=== PATIENT | female | born 1985 | race Hispanic/Latino ===

== ENCOUNTER 2018-09-25 02:16 | Inpatient (IN) | payer OTHER ==
[2018-09-25 03:39] VITALS: BMI 25.8
[2018-09-25] MEDS ORDERED: Lactated Ringer's 1,000 ML IV SCH (03:45)
--- NOTE | 2018-09-25 03:47 | OBHP ---
Datetime: 09/25/2018 03:41 IP Adm Impression: Term, intrauterine ; Ruptured Membranes IP Admit Plan: Admit to unit; Initiate labor induction protocol Admit Comment, IP Provider: Patient is a @ 37.6 wks, suspected rupture of membranes, slightly b lood tinged, no ctxns,+FM. Patient reports A Negative blood type, received Rhogam in the @ 28 wks, otherwise no antepartum issues, no medical problems, no surgeries, no allergies, no medicatio ns except vitamins. On exam, grossly ruptured VE=1/50/-3, grossly ruptured [id number] mod rosalio, +accels, no decels TOCO= infrequent A/P 1. Patient admited for ROM, IVF, CBC/type and screen 2. Will start Cytotec for augmentation 3. Patient does not want anything for pain at this time Pelvic Type - PN: Adequate Extremities - PN: Normal Abdomen - PN: Normal Back - PN: Normal Breast - PN: Normal Lungs - PN: Normal Heart - PN: Normal Thyroid - PN: Normal Neurologic - PN: Normal HEENT - PN: Normal General - PN: Normal FHR - Baseline A Provider: 125 Amniotic Fluid Color, Provider: Bloody Membranes, Provider: Ruptured Contraction Comments Provider: infrequent EGA AdmitDate IP: 37.6 Vital Signs Provider: Reviewed; Within Normal Limits IP Chief Complaint: Suspected ruptured membranes NICHD Variability Prov Fetus A: Moderate 6-25bpm NICHD Accel Fetus A IP Provider: 15X15 NICHD Decel Fetus A IP Provider: None Dilatation, Provider: 1 Effacement, Provider: 50 Station, Provider: -3 Genitourinary Exam: Normal DTRs - PN: Normal
[2018-09-25 04:26] LABS: BASO % 0.3 % (0.0-2.0); EOS # 0.1 K/uL (0.0-0.7); EOS % 0.6 % (0.0-4.0); HEMOGLOBIN 11.5 g/dL (12.0-16.0); LYMPH # 1.6 K/uL (1.0-4.3); LYMPH % 16.1 % (20.0-40.0); MEAN CELL VOLUME 87.6 fl (81.0-99.0); MEAN CORPUSCULAR HEMOGLOBIN 28.7 pg (27.0-31.0); MEAN CORPUSCULAR HGB CONC 32.8 g/dL (33.0-37.0); MEAN PLATELET VOLUME 10.2 fl (7.2-11.7); MONO # 0.7 K/uL (0.0-0.8); MONO % 7.2 % (0.0-10.0); NEUT # 7.3 K/uL (1.8-7.0); NEUT % 75.8 % (50.0-75.0); RBC 4.01 Mil/uL (3.80-5.20); RED CELL DISTRIBUTION WIDTH 13.7 % (11.5-14.5); WHITE BLOOD COUNT 9.6 K/uL (4.8-10.8)
[2018-09-25 04:33] VITALS: RESP 18
--- NOTE | 2018-09-25 08:05 | OBADHP ---
Datetime: 09/25/2018 03:41 Admit Comment, IP Provider: Patient is a @ 37.6 wks, suspected rupture of membranes, slightly b lood tinged, no ctxns,+FM. Patient reports A Negative blood type, received Rhogam in the @ 28 wks, otherwise no antepartum issues, no medical problems, no surgeries, no allergies, no medicatio ns except vitamins. On exam, grossly ruptured VE=1/50/-3, grossly ruptured [id number] mod rosalio, +accels, no decels TOCO= infrequent A/P 1. Patient admited for ROM, IVF, CBC/type and screen 2. Will start Cytotec for augmentation 3. Patient does not want anything for pain at this time 4. Re-evaluate as needed Pelvic Type - PN: Adequate Extremities - PN: Normal Abdomen - PN: Normal Back - PN: Normal Breast - PN: Normal Lungs - PN: Normal Heart - PN: Normal Thyroid - PN: Normal Neurologic - PN: Normal HEENT - PN: Normal General - PN: Normal FHR - Baseline A Provider: 125 Amniotic Fluid Color, Provider: Bloody Membranes, Provider: Ruptured Contraction Comments Provider: infrequent Vital Signs Provider: Reviewed; Within Normal Limits IP Chief Complaint: Suspected ruptured membranes NICHD Variability Prov Fetus A: Moderate 6-25bpm NICHD Accel Fetus A IP Provider: [id number] NICHD Decel Fetus A IP Provider: None Dilatation, Provider: 1 Effacement, Provider: 50 Station, Provider: -3 Genitourinary Exam: Normal DTRs - PN: Normal EGA AdmitDate IP: 37.6 IP Adm Impression: Term, intrauterine ; Ruptured Membranes IP Admit Plan: Admit to unit; Initiate labor induction protocol
--- NOTE | 2018-09-25 17:34 | OBPN ---
Datetime: 09/25/2018 17:31 IP Procedures: Sterile Vag Exam IP Progress Plan: Continue present management; Induction Contraction Comments Provider: mild q2-5min FHR - Baseline A Provider: 140s-150s IP Progress Note Comment: Pt without complaints Continue PO cytotec FHT category I Discussed plan with patient and all patient questions answered. Vital Signs Provider: Reviewed; Within Normal Limits NICHD Accel Fetus A IP Provider: 15X15 FHR Category Provider Fetus A: Category I NICHD Variability Prov Fetus A: Moderate 6-25bpm Dilatation, Provider: 1-2 Effacement, Provider: 75 Station, Provider: -1 NICHD Decel Fetus A IP Provider: None Datetime: 09/25/2018 03:41 Membranes, Provider: Ruptured Amniotic Fluid Color, Provider: Bloody Presentation-Admit: Vertex
[2018-09-25 21:05] VITALS: TEMP 98.3
[2018-09-25] MEDS ORDERED: Fentanyl/Bupivacaine HCl 250 ML EPI ONE (22:00)
[2018-09-25] MEDS ORDERED: OXYTOCIN/0.9 % NS 20 UNIT/1,000 ML BAG IV SCH (23:45)
[2018-09-25] MEDS ORDERED: Oxytocin 30 UNIT 30 UNITS/500 ML BAG IV ONE (23:55)
[2018-09-26] MEDS ORDERED: Lidocaine 1% Inj (20ml) ONE (00:11)
[2018-09-26] MEDS ORDERED: Benzocaine/Menthol SPRAY TOP PRN ×2 (00:32→05:13)
[2018-09-26] MEDS ORDERED: Oxycodone/Acetaminophen 5/325 mg Tab PO PRN ×4 (00:32→05:13)
--- NOTE | 2018-09-26 01:09 | OBDS ---
MATERNAL INFORMATION Provider Comments: . Pt delivered viable infant male with apgars 9/9 at 1_5 minutes. CHRISTIAN position. Loose nuchal cord x 1 reduced. Placenta delivered spont. Lac repaired, as above. Uterus firm and appropriately hemos tatic following delivery. Pt tolerated delivery and repair well. No complications. EBL 100cc. LABOR SUMMARY EDC: 10/10/2018 00:00 No. Babies in Womb: 1 LABOR INFORMATION Cervical Ripening Agents: Cytotec @ 50 mcg po as per DR Yoo. Group B Beta Strep: Negative MEMBRANES Membranes Rupture Method: Spontaneous Rupture of Membranes: 09/25/2018 00:35 Amniotic Fluid Color: Clear Amniotic Fluid Amount: Moderate Amniotic Fluid Odor: Normal VAGINAL DELIVERY Episiotomy: None Laceration Extension: Second Degree Laceration Type: Perineal Laceration Repair Note: Second degree midline perineal laceration. Area infiltrated with 1% lidocai ne. Lac repaired with 2.0 rapide without complication. Pt tolerated well.
[2018-09-26 06:19] LABS: HEMOGLOBIN 10.7 g/dL (12.0-16.0); MEAN CORPUSCULAR HEMOGLOBIN 28.6 pg (27.0-31.0); MEAN CORPUSCULAR HGB CONC 33.3 g/dL (33.0-37.0); RBC 3.75 Mil/uL (3.80-5.20); RED CELL DISTRIBUTION WIDTH 13.9 % (11.5-14.5); WHITE BLOOD COUNT 14.8 K/uL (4.8-10.8)
--- NOTE | 2018-09-26 08:27 | OBDS ---
DELIVERY PERSONNEL Delivery Doctor: Khushboo Yoo MD Scrub Nurse: Cynthia Oreilly Inspector Water Pollution Control: Gautam Ledbetter RN Anesthesiologist: Virgie Huber MD Resident: Alison Chapman MATERNAL INFORMATION Delivery Anesthesia: Local; Epidural Medications in Delivery: lidociane 2%, pitocin 30 units/500ml Estimated Blood Loss (ml): 100 Placenta Cultured: No Maternal Complications: None Provider Comments: . Pt delivered viable male with apgars 9/9 at 1_5 minutes. CHRISTIAN position. Loose nuchal cord x 1 reduced. Placenta delivered spont. Lac repaired, as above. Uterus firm and appropriately hemos tatic following delivery. Pt tolerated delivery and repair well. No complications. EBL 100cc. Provider Comments: a 32 yo f now P1 have delivered a healthy Baby Boy on 09/26/18 at 00:14 with placenta delivery at 00:18 NVD. Upon delivery baby had a loose nucal cord was reduced, baby was plac ed on mom for skin to skin, and cord was clamped and cut. 9/9. There was a sec degree perineal laceration;sutured. EBL 100. It was a normal vaginal delivery with no complication. Delivery was atte nded by Dr Yoo and Dr Chapman. Efraín Adela PGY1 LABOR SUMMARY EDC: 10/10/2018 00:00 No. Babies in Womb: 1 Attempted: No Labor Anesthesia: Epidural LABOR INFORMATION Reason for Induction: Not Applicable Onset of Labor: 09/25/2018 00:35 Complete Dilatation: 09/25/2018 23:22 Cervical Ripening Agents: Cytotec @ 50 mcg po as per DR Yoo. Cervical Ripening Agents: Cytotec @ (Annotations: cytotec 50mcg given po ) Oxytocin: N/A Group B Beta Strep: Negative Antibiotics # of Doses: 0 Antibiotics Time of Last Dose: n/a Steroids Given: None Reason Steroids Not Administered: Not Applicable MEMBRANES Membranes Rupture Method: Spontaneous Membranes Rupture Method: Spontaneous Rupture of Membranes: 09/25/2018 00:35 Length of Rupture (hrs): 23.65 Amniotic Fluid Color: Clear Amniotic Fluid Color: Clear Amniotic Fluid Amount: Moderate Amniotic Fluid Amount: Moderate Amniotic Fluid Odor: Normal STAGES OF LABOR Stage 1 hrs: 22 Stage 1 min: 47 Stage 2 hrs: 0 Stage 2 min: 52 Stage 3 hrs: 0 Stage 3 min: 4 Total Time in Labor hrs: 23 Total Time in Labor min: 43 VAGINAL DELIVERY Episiotomy: None Laceration Extension: Second Degree Laceration Type: Perineal Laceration Repair: Yes Laceration Repair Note: Second degree midline perineal laceration. Area infiltrated with 1% lidocai ne. Lac repaired with 2.0 rapide without complication. Pt tolerated well. Initial Vag Sponge Count: 5 Final Vag Sponge Count: 5 Initial Vag Sharps Count: 2 Final Vag Sharps Count: 2 Sponge Count Correct: Yes Sharps Count Correct: Yes BABY A INFORMATION Infant Delivery Date/Time: 09/26/2018 00:14 Method of Delivery: Vaginal Method of Delivery: Vaginal Born in Route : No : N/A Forceps: N/A Vacuum Extraction: N/A Shoulder Dystocia : No SHOULDER DYSTOCIA BABY A Infant Delivery Date/Time: 09/26/2018 00:14 PRESENTATION/POSITION BABY A Presentation: Cephalic Cephalic Presentation: Vertex Vertex Position: Left Occipital Anterior Breech Presentation: N/A PLACENTA INFORMATION BABY A Placenta Delivery Time : 09/26/2018 00:18 Placenta Method of Delivery: Spontaneous Placenta Method of Delivery: Spontaneous Placenta Status: Delivered SCORES BABY A Heart Rate 1 min: >100 bpm Resp Effort 1 min: Good Cry Reflex Irritability 1 min: Cough or Sneeze or Pulls Away Muscle Tone 1 min: Active Motion Color 1 min: Body [place], Extremities Blue Resuscitation Effort 1 min: N/A SCORE 1 MIN: 9 Heart Rate 5 min: >100 bpm Resp Effort 5 min: Good Cry Reflex Irritability 5 min: Cough or Sneeze or Pulls Away Muscle Tone 5 min: Active Motion Color 5 min: Body [place], Extremities Blue Resuscitation Effort 5 min: N/A SCORE 5 MIN: 9 INFANT INFORMATION BABY A Gestational Age at Delivery: 38.0 Gestational Status: Term Infant Outcome : Liveborn Infant Condition : Stable Infant Sex: Male Sex: Male IDENTIFICATION/MEDS BABY A ID Band Number: G Roveccio RN ID Band Location: Left Leg; Left Arm WEIGHT/LENGTH BABY A Birthweight (gms): 2620 Weight (lb): 5 Weight (oz): 12 CORD INFORMATION BABY A No. Cord Vessels: 3 Nuchal Cord : Around Neck x1, Loose Cord Blood Taken: Yes Infant Suction: None
--- NOTE | 2018-09-28 07:43 | OBPPN ---
Datetime: 09/28/2018 07:41 PP Pain Prov: Within normal limits PP Abdomen/Uterus Prov: Normal PP Lochia Prov: Normal PP Extremities Prov: Normal PP Impression Prov: Normal progression PP Plan Prov: Discharge PP Progress Note Prov: PPD 2 s/p , doing well, breast feeding Discharge home today Vital Signs Provider PP: Reviewed
--- NOTE | 2018-09-28 07:45 | OBDCSUM ---
Datetime: 09/28/2018 07:42 Discharged to, Provider: Home Follow up at, Provider: Dr. Vogel Disch Instr Activity: Normal activity Disch Instr Diet: Regular Discharge Instructions, Provider: Routine instructions given Discharge Diagnosis, Provider: Term Delivered Discharge Time: 09/28/2018 07:43 Follow up in weeks, Provider: 5 weeks Disch Activity Restrictions: No exercising; No sexual activity; Nothing in vagina - [place], nathalie hooks
[2018-09-28 21:52] VITALS: BP 125/75; PULSE 60; O2SAT 97
== END 2018-09-28 14:37 | disposition home or self-care (01) | DRG 807 ==
LOC: H.EROB2 02:16 → H.L&D 03:39 → H.OB/GYN 09-26 03:30
PROVIDERS: ADMIT Obstetrics & Gynecology; ATTEND Obstetrics & Gynecology
PROC: 4A1HXCZ Monitoring of Products of Conception, Cardiac Rate, External Approach (ICD-10-PCS; 2018-09-25)
PROC: 0KQM0ZZ Repair Perineum Muscle, Open Approach (ICD-10-PCS; principal; 2018-09-26)
PROC: 10E0XZZ Delivery of Products of Conception, External Approach (ICD-10-PCS; 2018-09-26)
DX: O70.1 Second degree perineal laceration during delivery (principal); Z37.0 Single live birth; O69.81X0 Labor and delivery complicated by cord around neck, without compression, not applicable or unspecified; Z3A.38 38 weeks gestation of pregnancy